=== PATIENT | female | born 1945 | race African-American/Black ===

== ENCOUNTER 2017-09-25 17:04 | Emergency (ER) | payer MEDICARE, OTHER ==
[~2017-09-25] VITALS: Ht 165.1 cm; Wt 81.7 kg
[2017-09-25] MEDS ORDERED: ZOCOR20 MG PO (17:11)
[2017-09-25] MEDS ORDERED: NAPROSYN500 MG PO (18:40)
[2017-09-25] MEDS ORDERED: VOLTAREN GEL 1100 GM TOP (18:40)
[2017-09-25] MEDS ORDERED: NORFLEX100 MG PO (18:40)
[2017-09-25 19:05] VITALS: BP 128/58
== END 2017-09-25 19:06 | disposition home or self-care (01) ==
LOC: M.ERS 17:04
DX: S13.4XXA Sprain of ligaments of cervical spine, initial encounter (principal); R51 Headache; E78.00 Pure hypercholesterolemia, unspecified; V89.2XXA Person injured in unspecified motor-vehicle accident, traffic, initial encounter; Y93.89 Activity, other specified; Y92.89 Other specified places as the place of occurrence of the external cause; Y99.8 Other external cause status